=== PATIENT | male | born 2005 | race Caucasian/White ===

== ENCOUNTER 2025-04-06 16:23 | Emergency (ER) | payer BC ==
[2025-04-06 17:19] LABS: #Basophils 0.04 10x3/uL (0.0-0.2); #Eosinophils 0.04 10x3/uL (0.0-0.7); #Monocytes 0.67 10x3/uL (0.11-0.59); #Neutrophils 5.40 10x3/uL (1.40-6.50); %Basophils 0.5 % (0.0-1.0); %Eosinophils 0.5 % (0.0-10.0); %Lymphocytes 24.3 % (28.0-48.0); %Monocytes 8.2 % (0.0-4.0); %Neutrophils 66.1 % (31.0-61.0); Hematocrit 44.5 % (42.0-52.0); Hemoglobin 15.2 g/dL (14.0-18.0); Mean Corpuscular Hemoglobin 30.3 pg (25.0-35.0); Mean Corpuscular Volume 88.8 fL (78.0-98.0); Platelet Count 282 10x3/uL (130-400); Red Blood Cell (RBC) Count 5.01 mill/uL (4.00-5.20); White Blood Cell (WBC) Count 8.16 10x3/uL (4.8-10.8)
[2025-04-06 18:05] LABS: ALT (SGPT) 21 U/L (Less than 45); AST (SGOT) 26 U/L (11-34); Albumin 4.9 g/dL (3.1-4.5); Alkaline Phosphatase 48 U/L (50-130); Anion Gap 11 mmol/L (10-20); BUN (Urea Nitrogen) 14 mg/dL (8.4-21.0); Bilirubin, Total 0.6 mg/dL (0.3-1.2); Calc. Creatinine Clearance 0 mL/min (70-130); Calcium 10.3 mg/dL (7.8-10.44); Carbon Dioxide 28 mmol/L (22-29); Chloride 103 mmol/L (98-107); Glucose 75 mg/dL (70-105); Potassium 4.0 mmol/L (3.5-5.1); Sodium 138 mmol/L (136-145)
[2025-04-06 18:26] LABS: Globulin 2.4 g/dL (2.4-3.5)
== END 2025-04-06 19:47 | disposition home or self-care (01) ==
LOC: ERS 16:23
DX: R00.2 Palpitations (principal)
CPT/HCPCS: 36415; 71045; 80053; 84443; 85025; 93005